=== PATIENT | male | born 1935 | race Caucasian/White ===

== ENCOUNTER 2021-03-06 05:58 | Day surgery (SDC) | payer MEDICARE ==
[2021-03-02 12:14] LABS: BASOPHILS % (AUTO) 0.4 % (0.0-5.0); EOSINOPHILS % (AUTO) 2.9 % (0.0-8.0); HEMATOCRIT 42.2 % (42-54); LYMPHOCYTES % (AUTO) 18.4 % (21.0-51.0); MEAN CORPUSCULAR HEMOGLOBIN 30.8 pg (27.0-33.0); MEAN CORPUSCULAR HGB CONC 33.2 g/dL (32.0-36.0); MONOCYTES % (AUTO) 7.8 % (3.0-13.0); NEUTROPHILS % (AUTO) 70.2 % (40.0-77.0); PLATELET COUNT (AUTO) 249 K/uL (130-400); RED BLOOD CELL COUNT(AUTO) 4.54 MIL/uL (4.50-6.20); RED CELL DISTRIBUTION WIDTH 12.9 % (11.0-15.5)
[2021-03-02 12:19] LABS: CREATININE 0.9 mg/dL (0.5-1.5)
[2021-03-02 12:26] LABS: INR 1.02 (0.85-1.15); PROTHROMBIN TIME 11.1 SEC (9.6-11.6)
[2021-03-03 10:11] VITALS: BP 121/69
[2021-03-06] VITALS (11 sets, daily range): BP systolic 103–124; BP diastolic 64–78
[~2021-03-06] VITALS: Ht 172.7 cm; Wt 71.8 kg
[~2021-03-06 05:58] MED LIST: AEC81 PO; AMLO-258 PO; ATOR40TA69 PO; BENEFIBER PO; DOCU-116 PO; GLUC-29 PO; HYDR25TA PO; MULT-1289 PO; OMEG-148 PO; TUMERIC PO; UBID100C10 PO
[2021-03-06] MEDS ORDERED: 0.9%NACL 1000ML 1,000 ML IV ONE (06:07)
[2021-03-06] MEDS ORDERED: BUPIVACAINE/PF 0.25% 30ML VIAL IJ ONE (07:30)
[2021-03-06] MEDS ORDERED: CEFAZOLIN SODIUM 1 GM VIAL ONE (07:30)
[2021-03-06] MEDS ORDERED: MEPERIDINE-PF 25 MG/ML SYG ONE ×2 (07:31→08:03)
[2021-03-06] MEDS ORDERED: LIDOCAINE HCL 1% MDV 50ML VIAL ONE (07:31)
[2021-03-06] MEDS ORDERED: MIDAZOLAM HCL 1 MG/ML 2ML VIAL ONE ×2 (07:31→08:03)
[2021-03-06] MEDS ORDERED: 0.9%NACL 1000ML 1,000 ML IV SCH (08:00)
[2021-03-06] MEDS ORDERED: THROMBIN-JMI 5000 UNIT/VIAL TP ONE (08:18)
[2021-03-06] MEDS ORDERED: QUERCETIN PO (08:46)
[2021-03-06] MEDS ORDERED: [UNRECOGNIZED DRUG - OTHER] PO (08:46)
[2021-03-06] MEDS ORDERED: ACETAMINOPHEN 325 MG TAB PO PRN ×2 (09:00)
[2021-03-06] MEDS ORDERED: CEFAZOLIN SODIUM 1 GM VIAL IVP SCH (14:00)
== END 2021-03-06 14:20 | disposition home or self-care (01) ==
LOC: DAH 05:58
PROVIDERS: ATTEND Internal Medicine Cardiovascular Disease
DX: Z45.010 Encounter for checking and testing of cardiac pacemaker pulse generator [battery] (principal); I49.5 Sick sinus syndrome; I10 Essential (primary) hypertension; E78.5 Hyperlipidemia, unspecified; Z79.899 Other long term (current) drug therapy; Z79.01 Long term (current) use of anticoagulants; Z79.82 Long term (current) use of aspirin
CPT/HCPCS: 33228; 36415; 80048; 85025; 85610; 85730; 93005; A4215; A4216; A4221; A4222; A4223 ×3; A4606; A4663; C1785; J0690 ×2; J2175 ×2; J2250 ×2; J3490 ×3; J7030; 99156; 99157

== ENCOUNTER → 2021-03-14 | Outpatient (CLI) | payer MEDICARE ==
[~2021-03-14] MED LIST changes: +QUERCETIN PO; +[UNRECOGNIZED DRUG - OTHER] PO
== END | disposition home or self-care (01) ==
LOC: SHCH 13:21
PROVIDERS: ATTEND Internal Medicine Cardiovascular Disease
DX: I07.1 Rheumatic tricuspid insufficiency (principal); I49.5 Sick sinus syndrome; Z95.0 Presence of cardiac pacemaker
CPT/HCPCS: 93306; 93356

== ENCOUNTER 2023-07-09 10:50 | Emergency (ER) | payer MEDICARE ==
[~2023-07-09] VITALS: Ht 167.6 cm; Wt 79.4 kg
[~2023-07-09 10:50] MED LIST changes: +AMOX1TAB16 PO; +BACI30OI6 TP
[2023-07-09 11:53] VITALS: BP 136/93; PULSE 71; RESP 16; O2SAT 9
[2023-07-09 13:40] LABS: HEMATOCRIT 48.3 % (42-54); MEAN CORPUSCULAR HEMOGLOBIN 31.5 pg (27.0-33.0); MEAN CORPUSCULAR HGB CONC 32.7 g/dL (32.0-36.0); MEAN CORPUSCULAR VOLUME 96.4 fL (79-99); RED BLOOD CELL COUNT(AUTO) 5.01 MIL/uL (4.50-6.20); RED CELL DISTRIBUTION WIDTH 12.7 % (11.0-15.5)
[2023-07-09 13:50] LABS: CREATININE 0.9 mg/dL (0.5-1.5); POTASSIUM 4.8 mmol/L (3.5-5.1)
[2023-07-09 13:55] LABS: ALBUMIN 3.4 g/dL (3.5-5.0); BILIRUBIN,TOTAL 1.1 mg/dL (0.2-1.0); TOTAL PROTEIN, SERUM 7.1 g/dL (6.0-8.3)
== END 2023-07-09 21:24 | disposition home or self-care (01) ==
LOC: EDH 10:50
DX: S01.111A Laceration without foreign body of right eyelid and periocular area, initial encounter (principal); S09.90XA Unspecified injury of head, initial encounter; E78.00 Pure hypercholesterolemia, unspecified; I10 Essential (primary) hypertension; F03.90 Unspecified dementia, unspecified severity, without behavioral disturbance, psychotic disturbance, mood disturbance, and anxiety; Z79.82 Long term (current) use of aspirin; Z79.899 Other long term (current) drug therapy; Z85.828 Personal history of other malignant neoplasm of skin; Z86.73 Personal history of transient ischemic attack (TIA), and cerebral infarction without residual deficits; Z95.810 Presence of automatic (implantable) cardiac defibrillator; W07.XXXA Fall from chair, initial encounter; Y93.89 Activity, other specified; Y92.89 Other specified places as the place of occurrence of the external cause; Y99.8 Other external cause status
CPT/HCPCS: 36415; 70450; 70486; 80053; 84484; 85027; 93005

== ENCOUNTER → 2023-11-28 | Outpatient (CLI) | payer MEDICARE ==
[2023-11-28 16:38] LABS: THYROID STIMULATING HORMONE 1.75 uIU/mL (0.36-3.74)
== END | disposition home or self-care (01) ==
LOC: LAB 15:45
PROVIDERS: ATTEND Internal Medicine Cardiovascular Disease
DX: R60.0 Localized edema (principal)
CPT/HCPCS: 36415; 84439; 84443

== ENCOUNTER 2024-04-11 11:54 | Emergency (ER) | payer MEDICARE ==
[~2024-04-11] VITALS: Ht 170.2 cm; Wt 77.1 kg
[2024-04-11] MEDS: NEOMY SULF/BACITRA/POLYMYXIN B 1 EACH PACKET TP ONE (12:53)
[2024-04-11] MEDS: AMOX/CLAV 875/125MG TAB PO ONE (12:53)
[2024-04-11 12:57] VITALS: BP 131/82; PULSE 65; RESP 16; TEMP 98.7
[2024-04-11] MEDS: teTANUS/diphthERIA TOXOID [ADULT] 0.5 ML VIAL IM ONE (12:57)
[2024-04-11] MEDS ORDERED: AMOX1TAB16 PO (13:15)
== END 2024-04-11 13:54 | disposition home or self-care (01) ==
LOC: EDH 11:54
DX: S61.052A Open bite of left thumb without damage to nail, initial encounter (principal); S61.251A Open bite of left index finger without damage to nail, initial encounter; S61.253A Open bite of left middle finger without damage to nail, initial encounter; S61.255A Open bite of left ring finger without damage to nail, initial encounter; E78.00 Pure hypercholesterolemia, unspecified; I10 Essential (primary) hypertension; F03.90 Unspecified dementia, unspecified severity, without behavioral disturbance, psychotic disturbance, mood disturbance, and anxiety; Z79.82 Long term (current) use of aspirin; Z79.899 Other long term (current) drug therapy; Z86.73 Personal history of transient ischemic attack (TIA), and cerebral infarction without residual deficits; Z95.810 Presence of automatic (implantable) cardiac defibrillator; Z96.653 Presence of artificial knee joint, bilateral; W54.0XXA Bitten by dog, initial encounter; Y93.89 Activity, other specified; Y92.89 Other specified places as the place of occurrence of the external cause; Y99.8 Other external cause status
CPT/HCPCS: 90471; 90714

== ENCOUNTER 2025-06-23 16:32 | Emergency (ER) | payer MEDICARE ==
[~2025-06-23] VITALS: Ht 165.1 cm; Wt 78.9 kg
[~2025-06-23 16:32] MED LIST changes: -UBID100C10 PO; +UBID100C51 PO
--- NOTE | 2025-06-23 17:12 | ERN ---
ED Note History of Present Illness Stated Complaint: FALL Chief Complaint: Mechanical Fall Time Seen by MD: 16:37 Dictation: PATIENT IS AN 89-YEAR-OLD MALE HAD A SAME LEVEL TRIP FALL AND LANDED ON HIS FACE 1 HOUR PRIOR TO ARRIVAL. NO LOC NO NAUSEA VOMITING. HE DOES HAVE A LACERATION TO THE RIGHT CHEEK BONE AND RIGHT CHEEK. NO LOC NO NAUSEA VOMITING NO BLOOD THINNERS NO TRAUMA ALERT CRITERIA. HE HAS NO OTHER COMPLAINTS OF AT THIS TIME. MIDLINE SPINE PAIN. LAST TETANUS SHOT WAS CURRENT PER THE . Allergies: Coded Allergies: No Known Drug Allergies (Verified Allergy, 07/18/12) Home Meds Active Scripts Amoxicillin/Potassium Clav (Amox Tr-K Clv 875-125 mg Tab) 875 Mg-125 Mg Tablet, 1 EACH PO BID for 10 Days, #20 TAB 0 Refills Prov:PO ROSARIO [employer] 04/11/24 Bacitracin (Bacitracin) 28.4 Gm Oint...g., 28.4 GM TP TID, #1 TUBE Prov:ANNE PICHARDO [employer] 12/03/21 Amoxicillin/Potassium Clav (Amox Tr-K Clv 875-125 mg Tab) 1 Each Tablet, 1 EACH PO BID, #14 TAB Prov:ANNE PICHARDO [facility] 12/03/21 Reported Medications [Quercetin/ Vitamin C] No Conflict Check, 500 MG PO HS 03/06/21 Cullen-3S/Dha/Epa/Fish Oil (Fish Oil 1,000 mg Softgel) 1 Each Capsule, 1 EACH PO HS, CAP 03/03/21 Glucosa Walton 2Kcl/Chondroitin Walton (Glucosamine & Chondroitin Cap) 1 Each Capsule, 1 EACH PO HS, CAP 03/03/21 Multivit-Min/FA/Lycopen/Lutein (Centrum Silver Men Tablet) 1 Each Tablet, 1 EACH PO DAILY, TAB 03/03/21 Ubidecarenone (Coq-10) 100 Mg Capsule, 200 MG PO DAILY, CAP 03/03/21 [Benefiber] No Conflict Check, 1 TBS PO DAILY 03/03/21 Docusate Sodium (Colace) 100 Mg Capsule, 200 MG PO DAILY, CAP 03/03/21 [Tumeric] No Conflict Check, 1000 MG PO HS 03/03/21 Aspirin (ASPIRIN 81 MG ECTAB) 81 Mg Ectab, 81 MG PO DAILY, TAB.EC 03/03/21 Amlodipine Besylate (Amlodipine Besylate) 10 Mg Tablet, 10 MG PO HS for 30 Days, #30 TAB 0 Refills 03/03/21 Hydrochlorothiazide (Hydrochlorothiazide) 25 Mg Tablet, 25 MG PO DAILY, TAB 03/03/21 Atorvastatin Calcium (LIPITOR) 40 Mg Tablet, 40 MG PO HS, TAB 03/03/21 Past Medical History Past Medical History: Dementia, High Cholesterol, Hypertension, Stroke Additional Past Medical Hx: PACE MAKER Surgical History: Pacer/AICD Surgical History Other: BILAT KNEE SX, RT HIP SX Social History: Lives with family RN Note Reviewed/Agreed w/PFSH: Yes Review of System Dictation CONSTITUTIONAL: Negative except for HPI HEAD/FACE: Negative except for HPI right facial laceration headache EENT: Negative except for HPI RESPIRATORY: Negative except for HPI GASTROINTESTINAL/ABDOMINAL: Negative except for HPI GENITOURINARY: Negative except for HPI MUSCULOSKELETAL: Negative except for HPI INTEGUMENTARY: Negative except for HPI NEUROLOGICAL/PSYCH: Negative except for HPI HEMATOLOGIC/LYMPHATIC: Negative except for HPI All Systems Negative, Except as noted above. 13 point review of systems assessed and all negative except for above. Initial Vital Sign VS Vital Signs Date Time Temp Pulse Resp B/P (MAP) Pulse Ox O2 Delivery O2 Flow Rate FiO2 06/23/25 16:34 97.3 64 18 142/91 98 Room Air 0 06/23/25 17:38 21 Physical Exam Dictation Vital Signs reviewed General Appearance: Alert, oriented x 3, mild acute distress, well developed, nourished. Head and Face nasal pain with right facial laceration to cheek raccoon sign Eyes: PERRL, pink conjunctivas, eyelid no trauma, anterior chamber with arcus senilis. Ears: Pinnas intact and no signs of trauma or erythema ear canals clear and no discharge TM no erythema no hemotympanum Nose: No discharge, no bleeding. Oropharynx: Mouth normal, tongue pink, pharynx clear,no erythema, tonsils no exudates, no abscesses noted, mucous membrane moist Neck: Supple, non-tender, no thyromegaly, no masses, no JVD, no bruits Breast:Deferred Chest:No tenderness, no crepitus, no paradoxical movement, no retractions Lungs:Clear, well-ventilated, symmetric, no rales, no wheezing, no rhonchi, no stridor, good breath sounds bilaterally Heart: Regular rate, regular rhythm, no murmur, no gallops Vascular: no peripheral edema, Abdomen: Soft, positive bowel sounds, nondistended, no guarding, nontender, no rebound, no masses no hepatomegaly, no splenomegaly, no Dimas's sign, no hernias. Rectal: Deferred Genital: Deferred Neurological: Normal speech, motor function intact, sensory function intact p atient is baseline per his , Musculoskeletal: Neck nontender, full range of motion, back nontender, full range of motion, no midline spine pain or neck pain. Extremities: nontender, full range of motion Skin: Color pink, dry, no turgor, no rash, no lacerations, no abrasions, no contusions. Lymphatic: Deferred Results (Laboratory/Radiology) Laboratory/Radiology CLINICAL HISTORY: SAME LEVEL TRIP FALL RIGHT CHEEK PAIN.// TECHNIQUE: Axial computed tomography images of the face without intravenous contrast. Sagittal and coronal reformatted images were generated. CONTRAST: None. COMPARISON: None provided. FINDINGS: FACIAL BONES/ORBITS: No acute fracture or aggressively appearing osseous lesion. The mandible is intact. The orbits are normal. No retrobulbar hematoma or mass. Minimal mucosal thickening in the right maxillary sinus. The Nasal Septum is deviated to the left side. The remaining paranasal sinuses appear clear. SOFT TISSUES: The soft tissues are unremarkable. No radiopaque foreign body or focal fluid collection seen. IMPRESSION: No acute facial bone fracture evident. No acute soft tissue abnormalities. /[place] EXAM: CT Head Without IV contrast. CLINICAL HISTORY: SAME LEVEL TRIP FALL RIGHT CHEEK PAIN.//HEADACHE, NO LOC TECHNIQUE: Axial computed tomography images of the head/brain without intravenous contrast. COMPARISON: None provided. FINDINGS: BRAIN: No evidence of acute hemorrhage. No mass lesion. No CT evidence for acute territorial infarct. No midline shift or extra-axial collections. Diffuse cerebral volume loss in the form of prominent cortical sulci and ventricular system. Diffuse hypodensities in bilateral periventricular white matter, suggestive of chronic small vessel ischemic changes. VENTRICLES: No hydrocephalus. ORBITS: The orbits are unremarkable. SINUSES AND MASTOIDS: The paranasal sinuses and mastoid air cells are clear. BONES: No fracture. SOFT TISSUES: Unremarkable. IMPRESSION: No acute intracranial abnormality. Diffuse cerebral volume loss with chronic small vessel ischemic changes. /[place] Labs Reviewed?: Yes ED Course ED Course Orders Procedure Category Date Status Time Acetaminophen 500mg PHA 06/23/25 Complete Tab (Tylenol 500mg T 17:30 Ct Maxillofacial W/O CT 06/23/25 Resulted Contrast 17:06 Ct Head/Brain W/O CT 06/23/25 Resulted Contrast 17:06 Current Medications Medications (Trade) Dose Ordered Sig/Joie Route PRN Reason Start Time Stop Time Status Last Admin Dose Admin Acetaminophen (TYLenol 500MG TAB) 1,000 mg ONCE ONCE PO 06/23/25 17:30 06/23/25 17:31 DC 06/23/25 18:13 Vital Signs Date Time Temp Pulse Resp B/P (MAP) Pulse Ox O2 Delivery O2 Flow Rate FiO2 06/23/25 17:38 97.5 62 18 144/100 95 Room Air* 0 21 06/23/25 16:34 97.3 64 18 142/91 98 Room Air 0 1950/patient neurologically intact on discharged home he in his were made aware of negative CT of the head and face. Wound care and given instructions for suture of facial lack All questions answered Medical Decision Making MDM Medical discharge making based on HPI and tetanus Patient had negative CT of the face and head Patient laceration repaired with sutures Patient discharged home neurologically intact Procedure Procedure Dictation: 1939/procedure explained to patient he agreed to proceed 2.5 cm laceration to right cheek Cleansed with wound cleanser and started bleeding. Not able to approximate due to the bleeding Used2 mL lidocaine 1% plain for local anesthetic Laceration closed with five 4-0 Prolene simple interrupted Patient tolerated well Single-layer closure No bleeding after closed DX & DISP Disposition: Discharge Departure Impression: Primary Impression: Facial laceration Additional Impressions: Facial contusion, Closed head injury, Fall Condition: Stable Additional Instructions: Follow-up with primary care provider in 1 to 2 days. Take medications as directed here in the emergency room. Okay to continue home medications unless otherwise discussed during your visit in the emergency room today. Return to your nearest emergency room if symptoms worsen or if there is no improvement. Call 911 if you need immediate assistance. Take Tylenol or Motrin over-the- counter as needed and if no contraindications are present. Increase oral hydration. A wound culture or urine culture was ordered here in the emergency room department please follow-up with primary care provider and advise them to get repeat ports from our facility. If you had any Haresh wrap/splints that were applied here, please do not remove them until you see your primary care or specialty. Keep laceration repair clean and dry. Apply triple antibiotic ointment/[id number] with Band-Aid3 times a day for five days. Sutures out in 7-10 days. Return to the emergency room if any changes on the head injury information sheet. Referrals: DAYAMI ANDREWS MD (PCP) Time of Disposition: 19:52 I have reviewed the case, and I agree with, Diagnosis and Plan PO ROSARIOP Jun 23, 2025 17:12
--- NOTE | 2025-06-23 17:15 | NUR ---
ASSUMED CARE AT THIS TIME.
--- NOTE | 2025-06-23 18:10 | HMCIMG ---
EXAM: CT Maxillofacial Without IV contrast. CLINICAL HISTORY: SAME LEVEL TRIP FALL RIGHT CHEEK PAIN.// TECHNIQUE: Axial computed tomography images of the face without intravenous contrast. Sagittal and coronal reformatted images were generated. CONTRAST: None. COMPARISON: None provided. FINDINGS: FACIAL BONES/ORBITS: No acute fracture or aggressively appearing osseous lesion. The mandible is intact. The orbits are normal. No retrobulbar hematoma or mass. Minimal mucosal thickening in the right maxillary sinus. The Nasal Septum is deviated to the left side. The remaining paranasal sinuses appear clear. SOFT TISSUES: The soft tissues are unremarkable. No radiopaque foreign body or focal fluid collection seen. IMPRESSION: No acute facial bone fracture evident. No acute soft tissue abnormalities. /[place]
--- NOTE | 2025-06-23 18:15 | HMCIMG ---
EXAM: CT Head Without IV contrast. CLINICAL HISTORY: SAME LEVEL TRIP FALL RIGHT CHEEK PAIN.//HEADACHE, NO LOC TECHNIQUE: Axial computed tomography images of the head/brain without intravenous contrast. COMPARISON: None provided. FINDINGS: BRAIN: No evidence of acute hemorrhage. No mass lesion. No CT evidence for acute territorial infarct. No midline shift or extra-axial collections. Diffuse cerebral volume loss in the form of prominent cortical sulci and ventricular system. Diffuse hypodensities in bilateral periventricular white matter, suggestive of chronic small vessel ischemic changes. VENTRICLES: No hydrocephalus. ORBITS: The orbits are unremarkable. SINUSES AND MASTOIDS: The paranasal sinuses and mastoid air cells are clear. BONES: No fracture. SOFT TISSUES: Unremarkable. IMPRESSION: No acute intracranial abnormality. Diffuse cerebral volume loss with chronic small vessel ischemic changes. /[place]
--- NOTE | 2025-06-23 19:21 | NUR ---
REPORT GIVEN TO HIWOT GUZMÁN RN FOR CONTINUITY OF PATIENT CARE.
[2025-06-23] MEDS: NEOMY SULF/BACITRA/POLYMYXIN B 1 EACH PACKET TP ONE ×2 (19:48)
[2025-06-23] MEDS: OCTYL 2-CYANOACRYLATE 1 EACH TP ONE ×2 (19:48)
[2025-06-23 20:13] VITALS: BP 138/91; PULSE 63; RESP 18; TEMP 97.6; O2SAT 95
== END 2025-06-23 20:14 | disposition home or self-care (01) ==
LOC: EDH 16:32
DX: S01.81XA Laceration without foreign body of other part of head, initial encounter (principal); E78.00 Pure hypercholesterolemia, unspecified; F03.90 Unspecified dementia, unspecified severity, without behavioral disturbance, psychotic disturbance, mood disturbance, and anxiety; I10 Essential (primary) hypertension; Z79.82 Long term (current) use of aspirin; Z79.899 Other long term (current) drug therapy; Z86.73 Personal history of transient ischemic attack (TIA), and cerebral infarction without residual deficits; Z95.810 Presence of automatic (implantable) cardiac defibrillator; W01.0XXA Fall on same level from slipping, tripping and stumbling without subsequent striking against object, initial encounter; Y93.89 Activity, other specified; Y92.89 Other specified places as the place of occurrence of the external cause; Y99.8 Other external cause status
CPT/HCPCS: 12011; 70450; 70486; 99284